=== PATIENT | female | born 1970 | race Caucasian/White ===

== ENCOUNTER 2020-10-15 21:41 | Outpatient (REF) | payer BC, SELFPAY ==
[2020-10-15 22:16] LABS: Calculated LDL 78 mg/dL (<100); Cholesterol 173 mg/dL (<200); HDL Cholesterol 81 mg/dL (40-60); TSH (W/Ref FT4) 1.88 uIU/mL (0.36-3.74); Triglyceride 74 mg/dL (<150)
== END 2020-10-15 22:01 ==
LOC: NCHCN 21:41
PROVIDERS: PCP Nurse Practitioner Family; Visit Provider Nurse Practitioner Family
DX: M25.562 Pain in left knee (principal); R61 Generalized hyperhidrosis; R05 Cough; K30 Functional dyspepsia; F43.23 Adjustment disorder with mixed anxiety and depressed mood; Z80.3 Family history of malignant neoplasm of breast; Z00.00 Encounter for general adult medical examination without abnormal findings; H33 Retinal detachments and breaks
CPT/HCPCS: 80061; 84443

== ENCOUNTER 2021-12-06 14:29 | Outpatient (REF) | payer BC, SELFPAY ==
--- NOTE | 2021-12-06 12:05 | PAPFT_PTH ---
PATIENT: Zahraa Laguna LOC: [facility]#:[id number] AGE/SX: 51/F ROOM: RE12/06/[address]: Valerie Espinosa : 1970 BED: DIS: 12/06/2021 SPEC #: [id number] RECD: 12/06/21 17:14 STATUS: TALITA ROBERSON #: [id number] CITLALY: 12/06/21 12:[address]: Valerie Espinosa DEPT: [facility] Cytology RECD BY: Raquel Beck Tissues: 1 - CX/ENDOCX FOR PAP SMEARS Procedures: PAP THIN PREP/UVM Screening HPV DNA PROBE Comments: [id number]
[2021-12-07 12:48] LABS: COVID-19 RT-PCR UVMMC Result Negative (Negative)
== END 2021-12-06 14:30 | disposition home or self-care (01) ==
LOC: NCHCN 14:29
PROVIDERS: PCP Nurse Practitioner Family; Visit Provider Nurse Practitioner Family
DX: Z20.822 Contact with and (suspected) exposure to COVID-19 (principal); Z12.4 Encounter for screening for malignant neoplasm of cervix; Z11.51 Encounter for screening for human papillomavirus (HPV); Z01.419 Encounter for gynecological examination (general) (routine) without abnormal findings
CPT/HCPCS: 88142; U0003; 87624

== ENCOUNTER 2022-11-03 11:45 | Day surgery (SDC) | payer BC, SELFPAY ==
[2022-11-03 12:14] VITALS: BP 113/74; PULSE 58; RESP 16; TEMP 36.3; O2SAT 100
[2022-11-03] MEDS: Lactated Ringers 1,000 ML 80 ML IV (13:13)
--- NOTE | 2022-11-03 13:16 | W.ANESPRE ---
General Info Date of Service Date Performed: 11/03/22 Height: 5 ft 8 in Weight: 87 kg Body Mass Index (BMI): 29.1 Surgical Procedure: Operation Date: 11/03/22 13:35 Proposed Procedure Side Surgeon p Colonoscopy William Milligan MD Meds Allergies and Home Medications Allergies Allergy/AdvReac Type Severity Reaction Status Date / Time bee venom protein (honey bee) Allergy Severe Swelling/Ed Verified 11/03/22 12:11 tabatha Sulfa (Sulfonamide Allergy Intermediate Hives Verified 11/03/22 12:11 Antibiotics) sulfamethoxazole Allergy Mild Hives Verified 11/03/22 12:11 [From Bactrim] trimethoprim [From Bactrim] Allergy Mild Hives Verified 11/03/22 12:11 Home Medication Medication Instructions Recorded ibuprofen 200 mg tablet (Advil) 200 mg PO Q6H PRN 02/06/22 CBD Oil PO PRN 10/27/22 bisacodyl 5 mg tablet,delayed 5 mg PO ONCE Colonoscopy Bowel 10/27/22 release (Dulcolax (bisacodyl)) Prep #4 tabs polyethylene glycol 3350 17 238 g PO ONCE Colonoscopy Bowel 10/27/22 gram/dose oral powder Prep #238 grams Current Visit Medications: Current Medications Generic Name Dose Route Start Last Admin Trade Name Freq PRN Reason Stop Dose Admin Ringer's Solution 1,000 mls @ 80 mls/hr 11/03/22 06:00 11/03/22 13:13 IV 11/03/22 16:00 80 mls/hr INFUSION ALEXI Administration IV Miscellaneous Supplies 1 each 11/03/22 06:00 Iv Access IV 11/03/22 16:00 DIRECTED ALEXI Sodium Chloride 0 ml 11/03/22 06:00 Normal Saline Flush 10 Ml Syr IV 11/03/22 16:00 PRN PRN Sodium Chloride 0 ml 11/03/22 06:00 Normal Saline 10 Ml Vial IJ 11/03/22 16:00 DIRECTED PRN Sterile Water 0 ml 11/03/22 06:00 Water,Injection,Sterile 10 Ml Vial IJ 11/03/22 16:00 DIRECTED PRN PFSH Active Problems Active Problems: Problem Status Onset Code Irregular bowel habits R19.8 Snoring R06.83 Screening for colon cancer Z12.11 Tinnitus of both ears H93.13 Conductive hearing loss, unilateral, right ear, with unrestricted hearing on the contralateral side H90.11 Medical History Medical History Abnormal Pap smear of cervix Adjustment disorder with mixed anxiety and depressed mood Decreased hearing of left ear Dyspepsia Family history of breast cancer Former smoker Insomnia Night sweats Overweight Pneumonia Retinal hole Rhinitis Right shoulder pain Whooping cough Surgical History Surgical History H/O adenoidectomy Tobacco Smoking/Tobacco Use Status: Former Tobacco Use Alcohol Alcohol Intake: current Alcohol intake frequency: 0-2 drinks per day Substance Use Substance use: Never Substance use type: does not use Vital Signs and Lab Results Vital Signs Most Recent Vital Signs in EMR: Most Recent Vital Signs Temp Pulse Resp BP Pulse Ox 36.3 C L 58 L 16 113/74 100 11/03/22 12:14 11/03/22 12:14 11/03/22 12:14 11/03/22 12:14 11/03/22 12:14 Point of Care Results Point of Care Results: POC- Test(urine) Negative 11/03/22 12:54 Lab Results Blood Type / Crossmatch: No Data to Display Complete Blood Count: No Data to Display Complete Metabolic Panel: No Data to Display Liver Function Panel: No Data to Display Coagulation Panel: No Data to Display Cardiac Panel: No Data to Display Arterial Blood Gas: No Data to Display Venous Blood Gas: No Data to Display Pancreas Panel: No Data to Display Thyroid Panel: No Data to Display Infectious Disease: No Data to Display Blood Cultures: No Data to Display Toxicology Panel: No Data to Display Panel: No Data to Display Anesthesia Assessment and Plan Anesthesia History Personal History: No History of Anesthesia Complications Family History: No Family History of Anesthesia Complications Exercise Tolerance Exercise Tolerance: Metabolic Equivalents>4 Pertinent Negatives Pertinent Negatives: No Symptoms of GERD, No Major Cardiovascular Symptoms or Complaints, No Major Pulmonary Symptoms or Complaints and No History of CVA/TIA Cardiac & Pulmonary Exam Cardiac Exam: Normal S1/S2 Heart Sounds Pulmonary Exam: Clear Bilateral Breath Sounds Implantable Cardiac Device Does patient have a Pacemaker or an ICD?: No Airway Exam Known Difficult Airway: No Mallampati Class: 2 Mouth Opening: Normal (> 3cm) Thyromental Distance: Greater than 3 cm Neck Range of Motion: Full ROM Neck Circumference: Normal Teeth Condition: Normal Dentition ASA Classification ASA Score: ASA 2 Emergency Case?: No NPO Status NPO Status: NPO Clears >2 hours, Solids >8 hours Status Status: Negative HCG Anesthesia Plan Resuscitation Status: Full Code Anesthesia Technique: General Anesthesia Airway Planned: Natural Airway Monitors Used: Standard Monitors
[2022-11-03 13:43] VITALS: BMI 29.1
--- NOTE | 2022-11-03 13:47 | BOWEL_PTH ---
PATIENT: Zahraa Laguna LOC: [facility] U#:[id number] AGE/SX: 51/F ROOM: RE11/03/[address]: William Milligan : 1970 BED: DIS: 11/03/2022 SPEC #: [id number] RECD: 11/03/22 16:48 STATUS: TALITA RE #: [id number] CITLALY: 11/03/22 13:[address]: William Milligna DEPT: Surgical Specimen RECD BY: Raquel Beck ENTERED: 11/03/22 16:49 SP TYPE: Bowel OTHR DR: Valerie Espinosa Tissues: 1 - BIOPSY BOWEL 2 - BIOPSY BOWEL 3 - BIOPSY BOWEL Procedures: GROSS AND MICRO LEVEL 4 Comments: [id number]
[2022-11-03 14:09] VITALS: BP 89/73; PULSE 61; RESP 18; TEMP 36.5; O2SAT 98
--- NOTE | 2022-11-03 14:14 | W.ANESPOSTOP ---
Postoperative Evaluation Date, Time and Location Date Performed: 11/03/22 Time Performed: 14:15 Patient Location: Day Surgery Unit Vital Signs Most Recent Imported Vital Signs: Most Recent Vital Signs Temp Pulse Resp BP Pulse Ox 36.3 C L 58 L 16 113/74 100 11/03/22 12:14 11/03/22 12:14 11/03/22 12:14 11/03/22 12:14 11/03/22 12:14 Most Recent Manually Entered Vital Signs: Adult Blood Pressure: 89/73 Heart Rate: 61 Respirations: 18 Oxygen Saturation (%): 98 Temperature (C): 36.5 C Pain Score (0-10 Scale): 0 Pain Score Most Recent Pain Score: Most Recent Pain Score Pain Level 0 11/03/22 12:14 Assessment Mental Status: Awake (Alert & Oriented to Patient Baseline) Airway and Respiratory Function: Patent airway with normal (patient baseline) respiratory exam Cardiovascular Function: Hemodynamically Stable Hydration Status: Adequately Hydrated Nausea & Vomiting: No Nausea or Vomiting Pain: Pt. Denies Any Pain Peripheral Nerve Block: Patient did not receive a nerve block
--- NOTE | 2022-11-03 14:25 | W.COLOREPORT ---
Date of service: 11/03/22 Time of Service: 14:25 Colonoscopy Report Procedure Description: Procedures performed: 1. Colonoscopy with snare polypectomy x3 2. Cold forceps biopsies 3. Endoscopic clip placement x2 Preoperative diagnosis: Screening colonoscopy Postoperative diagnosis: Colon polyps, mild sigmoid diverticulosis Surgeon: Sachi Milligan Anesthesia: Claude Indication for procedure: Patient is a 51-year-old woman with no prior colonoscopy and no significant family history of colorectal cancer or polyps. She has a long standing history of intermittent diarrhea/patient and abdominal discomfort. She has not had any work-up. Findings: Terminal ileum appeared normal. Multiple cold forceps biopsies were taken here to rule out IBD (not suspected visually). A 3 to 5 mm sessile polyp was removed from the sigmoid colon with hot snare technique. Within a couple of folds nearby is another 3-5 mm sessile polyp also removed with hot snare technique. These were sent together. Minimal/mild diverticular changes descending colon. In the distal sigmoid a 5-7 mm pedunculated on a very long stalk was visualized. It had the appearance of an inflammatory/juvenile polyp visually. At the base of the polyp stalk was the appearance of inverted diverticuli. The polyp was removed with the tip of the hot snare however the polyp disappeared within the small defect/diverticulum from which it was resected. I did not attempt to go inside of this to attempt to retrieve it since I felt it could be risky for perforation. As such I closed the small 2-3 mm defect in the mucosa with 2 endoscopic clips. This successfully and nicely approximated the mucosal edges. Because of her history, random colon biopsies were taken though the appearance of the mucosa was normal and no inflammation was seen. Surveillance/follow-up recommendations: Pending path results of the polyps that we did retrieve, if they are simple adenomas then 7-10 years, if villous or sessile serrated than 3 years (not suspected) and if hyperplastic by chance, in 10 years. Complications: None Blood loss: Minimal Procedure in detail: Written consent was obtained from the patient who was in agreement with the risks, benefits and indications of the procedure. We went to the endoscopy suite and laid the patient in left lateral decubitus position. Anesthesia was administered which was tolerated well. A timeout was performed and when we are all in agreement we began the procedure. Digital rectal exam and visual examination was performed and within normal limits. A well?lubricated colonoscope was advanced without difficulty all the way to the cecum identified by the ileocecal valve, and triangular folds and appendiceal orifice. The terminal ileum was intubated and appeared normal. It was then slowly withdrawn. Retroflexion was performed in the rectum. The findings/interventions are noted above. The scope was then removed and the patient tolerated the procedure well and was then taken back to the PACU in hemodynamically stable condition.
[2022-11-03 14:26] VITALS: BP 89/73; PULSE 61; RESP 18; TEMPC 36.5; O2SAT 98
[2022-11-03 14:44] VITALS: BP 105/79; PULSE 53; RESP 16; TEMP 36.5; O2SAT 100
== END 2022-11-03 15:10 | disposition home or self-care (01) ==
PROVIDERS: PCP Nurse Practitioner Family; Visit Provider Student in an Organized Health Care Education/Training Program
PROC: 0DJD8ZZ Inspection of Lower Intestinal Tract, Via Natural or Artificial Opening Endoscopic (ICD-10-PCS; CPT 45378; principal; 2022-11-03 13:30)
DX: Z12.11 Encounter for screening for malignant neoplasm of colon (principal); K63.5 Polyp of colon; K57.30 Diverticulosis of large intestine without perforation or abscess without bleeding
CPT/HCPCS: 45385; 45380; 81025; 88305

== ENCOUNTER 2024-10-03 01:18 | Outpatient (CLI) | payer BC, SELFPAY ==
--- NOTE | 2024-10-03 | DI.MAMMO_ITS ---
Exam(s) MAMMO SCREENING EXAM: MAMMO SCREENING CLINICAL HISTORY: SCREENING, Z12.31. TECHNIQUE: Bilateral full field digital CC and MLO mammographic images were obtained with 3D tomosyn thesis and utilizing computer aided detection (CAD). COMPARISON: Prior outside mammograms were reviewed. Prior outside ultrasound 12/30/2021 also reviewed FINDINGS: No new significant findings in left breast. In the right breast there is an asymmetric density located laterally on the CC view measuring 7 x 6 m m and located 9 cm in from the nipple. Spot compression view recommended. Also in the right breast on the 3D MLO view there is an asymmetric density-possible nodule located 4 cm in from the nipple, measuring 6 x 5 mm. Spot compression view recommended. There are no malignant-appearing microcalcification groups in either breast. There is no significant architectural distortion nor skin thickening-retraction. IMPRESSION: 1. No radiographic evidence of malignancy in left breast. 2. There are 2 asymmetric densities-possible nodules in the right breast, 1 on the CC view and the ot her on the MLO view. Spot compression CC and MLO views recommended as well as complete right breast u ltrasound BI-RADS Category 0 - Incomplete: Need additional imaging evaluation Breast Density - Category C - Heterogeneously dense Breast density Category C or D implies that the patient has dense breast tissue. Dense breast tissue can make it harder to find cancer on a mammogram. Dense breast tissue is also associated with an incr eased risk of breast cancer. This information about the result of the mammogram report was provided to the patient to raise their awareness. Use this report when you speak with the patient about their risks for breast cancer, which includes their family history. At that time, you may recommend additional screening tests (Ultrasoun d or MRI) as these tests may add significant information. A negative radiographic report should not delay biopsy if a dominant or clinically suspicious mass is present. Up to ten percent of cancers are not identified on mammography. A negative report may reinforce clinical impression. Adenosis and dense breasts may obscure an underlying neoplasm. False positive reports average 6 to 10%. Patient will receive a letter notifying them of these results.
== END 2024-10-03 01:38 ==
LOC: DI 01:18
PROVIDERS: PCP Nurse Practitioner Family; Visit Provider Nurse Practitioner Family
DX: Z12.31 Encounter for screening mammogram for malignant neoplasm of breast (principal); R92.333 Mammographic heterogeneous density, bilateral breasts
CPT/HCPCS: 77063; 77067

== ENCOUNTER 2024-10-18 00:46 | Outpatient (CLI) | payer BC, SELFPAY ==
--- NOTE | 2024-10-18 14:35 | DI.MAMMO_ITS ---
Exam(s) MAMMO DIAGNOSTIC UNI EXAM: MAMMO DIAGNOSTIC UNI CLINICAL HISTORY: Two asymmetric densities/possible nodules in rt breast. TECHNIQUE: Craniocaudal and mediolateral oblique Full Field Digital Mammography views of the right b reast with Computer Aided Diagnosis. COMPARISON: Comparison is made with prior examinations. FINDINGS: Mammography/Tomosynthesis: Masses/Architectural Distortion: The area of concern does not persist on the additional views. No medina spicious masses or areas of architectural distortion are present. Microcalcifictions: No suspicious pleomorphic-type are seen. Skin Thickening/Nipple Retraction: None. IMPRESSION: 1. No evidence of malignancy is noted. 2. Unless there is more urgent need, follow-up screening mammography is recommended, as per [place] [employer] guidelines. 3. The findings were discussed with the patient on the date of the examination. BI-RADS Category 1 - Negative Breast Density - Category C - Heterogeneously dense Breast density Category C or D implies that the patient has dense breast tissue. Dense breast tissue can make it harder to find cancer on a mammogram. Dense breast tissue is also associated with an incr eased risk of breast cancer. This information about the result of the mammogram report was provided to the patient to raise their awareness. Use this report when you speak with the patient about their risks for breast cancer, which includes their family history. At that time, you may recommend additional screening tests (Ultrasoun d or MRI) as these tests may add significant information. A negative radiographic report should not delay biopsy if a dominant or clinically suspicious mass is present. Up to ten percent of cancers are not identified on mammography. A negative report may reinforce clinical impression. Adenosis and dense breasts may obscure an underlying neoplasm. False positive reports average 6 to 10%. Patient will receive a letter notifying them of these results.
== END 2024-10-18 01:06 ==
LOC: DI 00:46
PROVIDERS: PCP Nurse Practitioner Family; Visit Provider Nurse Practitioner Family
DX: Z12.31 Encounter for screening mammogram for malignant neoplasm of breast (principal); N63.13 Unspecified lump in the right breast, lower outer quadrant
CPT/HCPCS: 77061; 77065; G0279

== ENCOUNTER 2025-01-24 03:21 | Outpatient (CLI) | payer BC, SELFPAY ==
--- NOTE | 2025-03-09 14:24 | W.NUTRFU ---
Date of service: 01/24/25 Time of Service: 09:00 Nutrition Note NOTE: Zahraa refferred for nutrition visit regarding wt mgt. She would like to consider ~170lbs a healthy good goal weight for her-currently at 204lbs. We discussed how weight loss can be helpful and healthy but the goal should not just be general weight loss as the goal should be body recomposition and fat loss with preservation or building increased lean tissue/muscle mass. Highlighted the necessity of exercise on top of activity, especially resistance types. She has a long commute for work and tends to be a night owl - insomnia can be a concern and let her know that this should be part of her plan to address as it can impact metabolism (and reduce her desire for exercise etc..). We reviewed a kcal goal of ~1700 per day along with ~170g total carbs, ~57g fat and 125g protein- also suggested at least 30g fiber and <20g added sugar per day. We reviewed resource to plug all this in and work with AI to create menus, shopping lists, prep help and more. She took my contact info and will call for any questions or need for follow up Time Spent in Nutritional Counseling and Treatment: 25min
== END 2025-01-24 03:22 | disposition home or self-care (01) ==
LOC: DS 03:21
PROVIDERS: PCP Nurse Practitioner Family; Visit Provider Dietitian, Registered
DX: Z71.3 Dietary counseling and surveillance (principal)
CPT/HCPCS: 00123; 97802